=== PATIENT | male | born 1945 | race Caucasian/White ===

== ENCOUNTER 2018-04-18 13:24 | Inpatient (IN) ==
[2018-04-18 14:57] LABS: Basophils # 0.1 10*3/uL (0.0-0.2); Basophils % 0.7 % (0.0-0.8); Eosinophils # 0.3 10*3/uL (0.0-0.87); Eosinophils % 3.3 % (0.00-10.9); Hematocrit 46.1 VOL% (42.0-52.0); Hemoglobin 14.9 GM/DL (14.0-18.0); Immature Granulocytes % 0.5 %; Immature Granulocytes Absolute 0.04 #; Lymphocytes # 2.9 10*3/uL (1.4-4.0); Lymphocytes % 33.7 % (21.2-54.2); Mean Corpuscular HGB Conc 32.3 GM/DL (32-36); Mean Corpuscular Hemoglobin 29 PG (27-34); Mean Corpuscular Volume 89.3 FL (87-102); Mean Platelet Volume 11.8 FL (9.6-12.0); Monocytes # 0.6 10*3/uL (0.11-0.8); Monocytes % 6.8 % (1.7-12.7); Neutrophils # 4.8 10*3/uL (1.4-7.4); Platelet Count 131 T/CUMM (130-400); Red Blood Count 5.16 MC/CUMM (3.8-5.5); Red Cell Distribution Width 12.4 % (9.3-17.3); White Blood Count 8.7 T/CUMM (4-12)
[2018-04-18 15:04] LABS: Albumin 3.2 G/DL (3.4-5.0); Bilirubin,Total 0.6 MG/DL (0.2-1.0); Calcium 8.6 MG/DL (8.5-10.1); Potassium 4.3 MMOL/L (3.5-5.1); Total Protein 7.1 G/DL (6.4-8.3)
[2018-04-18 15:12] LABS: PT Patient Result 11.2 SECS; Partial Thromboplastin Time 24.4 SECS (0-40)
[2018-04-18] MEDS: CHLORHEXIDINE 0.12% ORAL RINSE 60 ML BOTTLE SWISH/SPIT SCH ×2 (16:44→21:20)
[2018-04-18] MEDS: CHLORHEXIDINE 4% SOLN 118 ML BOTTLE TOP SCH ×2 (16:44→19:27)
[2018-04-19] MEDS: CHLORHEXIDINE 4% SOLN 118 ML BOTTLE TOP SCH (04:19)
[2018-04-19] MEDS ORDERED: PAPAVERINE 60 MG/2 ML VIAL ONE (05:12)
[2018-04-19] MEDS ORDERED: VANCOMYCIN 1,000 MG VIAL ONE (05:12)
[2018-04-19] MEDS ORDERED: TISSUE ADHESIVE 1 EACH APPLICATOR TOP ONE (05:12)
[2018-04-19 05:14] LABS: Apearance,Urine CLEAR (Clear); Bilirubin,Urine Negative (Negative); Blood, Urine Small mg/dL (Negative); Glucose,Urine (UA) >=500 mg/dL (Negative); Ketones,Urine Negative (Negative); Mucus,Urine Few /LPF (Occasional); Nitrite,Urine Negative (Negative); Protein,Urine Negative; RBC,Urine 6 /HPF (0-4); Squamous Epithelial Cell,Urine Occasional /HPF (0-10); Urine Color Yellow (Yellow); Urine Specific Gravity 1.016 (1.001-1.035); WBC,Urine 3 /HPF (0-6)
[2018-04-19] MEDS ORDERED: MIDAZOLAM 10 MG/2 ML VIAL ONE ×2 (05:49→11:33)
[2018-04-19] MEDS ORDERED: PHENYLEPHRINE DRIP 20 MG/250 ML PREMIX IV ONE ×2 (05:49→10:44)
[2018-04-19] MEDS ORDERED: SUFentanil 250 MCG/5 ML AMP ONE (05:49)
[2018-04-19] MEDS ORDERED: FAMOTIDINE 20 MG TABLET PO ONE (06:00)
[2018-04-19] MEDS ORDERED: CEFUROXIME INJ 1,500 MG in SYRINGE 1 EACH IV ONE (06:00)
[2018-04-19] MEDS ORDERED: SODIUM CHLORIDE 0.9% 1,000 ML IV SCH (06:30)
[2018-04-19 07:44] LABS: ABG Base Excess -0.7 MMOL/L (-2.5-2.5); ABG HCO3 23.9 MMOL/L (20-26); ABG Oxygen Saturation 99.9 % (95-100); ABG PCO2 42.1 MM HG (35-48); ABG PH 7.375 (7.35-7.45); ABG TCO2 21.2 MMOL/L (23-27); Glucose Heart Surgery 179 MG/DL (74-106); Hematocrit Heart Surgery 43.6 PERCENT (42-52); Hemoglobin Heart Surgery 14.2 G/DL (14.0-18.0); Ionized Calcium Arterial 1.13 MMOL/L (1.21-1.46); PCO2 Patient Temp Arterial 42.1 MMHG; PH Patient Temp Arterial 7.375; Patient Temperature 37 CELCIUS; Potassium Heart/CVR 3.9 MMOL/L (3.5-5.1); Sodium Heart/CVR 137 MMOL/L (135-145)
[2018-04-19 08:40] LABS: Apearance,Urine CLEAR (Clear); Bilirubin,Urine Negative (Negative); Blood, Urine Small mg/dL (Negative); Calcium Oxalate Crystals,Urine Occasional /HPF (Few); Glucose,Urine (UA) Negative (Negative); Ketones,Urine Negative (Negative); Mucus,Urine Occasional /LPF (Occasional); Nitrite,Urine Negative (Negative); Protein,Urine Negative; RBC,Urine 3 /HPF (0-4); Squamous Epithelial Cell,Urine Occasional /HPF (0-10); Urine Color Yellow (Yellow); Urine Specific Gravity 1.009 (1.001-1.035); Urine Urobilinogen < 2.0 EU/DL (0.2-1.0); WBC,Urine 2 /HPF (0-6)
[2018-04-19 09:02] LABS: Hematocrit Heart Surgery 35.3 PERCENT (42-52); Hemoglobin Heart Surgery 11.4 G/DL (14.0-18.0); PCO2 Patient Temp Venous 36.4 MM HG; PH Patient Temp Venous 7.443; PO2 Patient Temp Venous 44.2 MM HG; Potassium Heart/CVR 5.1 MMOL/L (3.5-5.1); VBG Base Excess 1.1 MEQ/L (0-4); VBG HCO3 25.2 MEQ/L (24-28); VBG Oxygen Saturation 86.7 %; VBG PCO2 40.1 MMHG (41-51); VBG PH 7.414; VBG PO2 50.7 MMHG (17-40)
[2018-04-19 09:30] LABS: Hematocrit Heart Surgery 38.2 PERCENT (42-52); Hemoglobin Heart Surgery 12.4 G/DL (14.0-18.0); PCO2 Patient Temp Venous 32.2 MM HG; PH Patient Temp Venous 7.489; PO2 Patient Temp Venous 38.7 MM HG; Potassium Heart/CVR 5.8 MMOL/L (3.5-5.1); VBG Base Excess 1.7 MEQ/L (0-4); VBG HCO3 25.6 MEQ/L (24-28); VBG PCO2 37.2 MMHG (41-51); VBG PH 7.445; VBG PO2 47.7 MMHG (17-40)
[2018-04-19] MEDS ORDERED: CALCIUM CHLORIDE 1,000 MG/10 ML SYRINGE IV ONE (09:56)
[2018-04-19] MEDS ORDERED: SODIUM BICARBONATE 50 MEQ/50 ML SYRINGE IV ONE ×2 (09:56→10:48)
[2018-04-19] MEDS ORDERED: ALBUMIN 5% 12.5 GM/250 ML VIAL IV ONE (09:56)
[2018-04-19] MEDS ORDERED: EPINEPHrine 1 MG/10 ML SYRINGE ONE (09:56)
[2018-04-19] MEDS ORDERED: POTASSIUM CHLORIDE RIDER 100 ML IV ONE (09:57)
[2018-04-19] MEDS ORDERED: PHENYLEPHRINE DRIP 40 MG/250 ML PREMIX IV ONE (09:57)
[2018-04-19 10:03] LABS: Hemoglobin Heart Surgery 12.8 G/DL (14.0-18.0); VBG Base Excess 1.2 MEQ/L (0-4); VBG HCO3 23.7 MEQ/L (24-28); VBG PCO2 31.5 MMHG (41-51); VBG PH 7.495; VBG PO2 43.9 MMHG (17-40)
[2018-04-19 10:04] LABS: PCO2 Patient Temp Venous 28.9 MM HG; PH Patient Temp Venous 7.526; PO2 Patient Temp Venous 38.1 MM HG
[2018-04-19 10:05] LABS: Potassium Heart/CVR 6.7 MMOL/L (3.5-5.1)
[2018-04-19] MEDS ORDERED: THROMBIN TOPICAL (RECOMBINANT) 5,000 UNIT VIAL TOP ONE (10:05)
[2018-04-19] MEDS: CHLORHEXIDINE 0.12% ORAL RINSE 60 ML BOTTLE SWISH/SPIT SCH ×2 (10:25→21:01)
[2018-04-19 10:40] LABS: ABG Base Excess -1.3 MMOL/L (-2.5-2.5); ABG HCO3 23.4 MMOL/L (20-26); ABG Oxygen Saturation 98.5 % (95-100); ABG PCO2 37.2 MM HG (35-48); ABG PH 7.402 (7.35-7.45); ABG TCO2 20.4 MMOL/L (23-27); Glucose Heart Surgery 274 MG/DL (74-106); Hematocrit Heart Surgery 38.3 PERCENT (42-52); Hemoglobin Heart Surgery 12.4 G/DL (14.0-18.0); Ionized Calcium Arterial 1.21 MMOL/L (1.21-1.46); PCO2 Patient Temp Arterial 37.2 MMHG; PH Patient Temp Arterial 7.402; Patient Temperature 37 CELCIUS; Potassium Heart/CVR 5.2 MMOL/L (3.5-5.1); Sodium Heart/CVR 132 MMOL/L (135-145)
[2018-04-19] MEDS ORDERED: PROPOFOL 200 MG/20 ML VIAL IV ONE (10:44)
[2018-04-19] MEDS ORDERED: fentaNYL 100 MCG/2 ML VIAL ONE (10:44)
[2018-04-19] MEDS ORDERED: ONDANSETRON 4 MG/2 ML VIAL ONE (10:44)
[2018-04-19] MEDS ORDERED: ePHEDrine 50 MG/ML AMP ONE (10:44)
[2018-04-19] MEDS ORDERED: SEVOFLURANE 1 UNIT/15 MINUTE INH ONE ×2 (10:44→11:32)
[2018-04-19] MEDS ORDERED: SODIUM CHLORIDE 0.9% 2,000 ML IV ONE (10:45)
[2018-04-19] MEDS ORDERED: ETOMIDATE 40 MG/20 ML VIAL IV ONE ×2 (10:45→11:33)
[2018-04-19] MEDS ORDERED: GLYCOPYRROLATE 0.4 MG/2 ML VIAL ONE (10:45)
[2018-04-19] MEDS ORDERED: PHENYLEPHRINE 1 MG/10 ML SYRINGE IV ONE (10:45)
[2018-04-19] MEDS ORDERED: ROCURONIUM 100 MG/10 ML VIAL IV ONE (10:45)
[2018-04-19] MEDS ORDERED: NITROGLYCERIN DRIP 50 MG/250 ML BOTTLE IV ONE (10:45)
[2018-04-19] MEDS ORDERED: MANNITOL 100 GM/500 ML BAG IV ONE (10:47)
[2018-04-19] MEDS ORDERED: DEXTROSE 5% KCL 20 MEQ 20 MEQ/1,000 ML BAG IV ONE (10:48)
[2018-04-19] MEDS ORDERED: HEPARIN 10,000 UNIT/10 ML VIAL ONE ×2 (10:48→11:32)
[2018-04-19] MEDS ORDERED: PROTAMINE SULFATE 250 MG/25 ML VIAL IV ONE ×2 (10:48→11:32)
[2018-04-19] MEDS ORDERED: ALBUMIN 25% 25 GM/100 ML VIAL IV ONE (10:48)
[2018-04-19] MEDS ORDERED: FUROSEMIDE 20 MG/2 ML VIAL ONE (10:48)
[2018-04-19] MEDS ORDERED: methylPREDNISolone SOD SUC 1,000 MG/8 ML VIAL ONE (10:48)
[2018-04-19] MEDS ORDERED: MAGNESIUM SULFATE 10 GM/20 ML VIAL IV ONE (10:48)
[2018-04-19] MEDS ORDERED: PROTAMINE SULFATE 50 MG/5 ML VIAL IV ONE (10:49)
[2018-04-19] MEDS ORDERED: MAGNESIUM SULF RIDER 2 GM in PREMIX 1 EACH IV PRN (11:22)
[2018-04-19] MEDS ORDERED: DEXTROSE 50% 25 GM/50 ML SYRINGE IV PRN ×2 (11:22)
[2018-04-19] MEDS ORDERED: MORPHINE 10 MG/1 ML VIAL IV PRN (11:22)
[2018-04-19] MEDS ORDERED: CHLORHEXIDINE 4% SOLN 118 ML BOTTLE TOP PRN (11:22)
[2018-04-19] MEDS ORDERED: ACETAMINOPHEN 650 MG SUPP RECTAL PRN (11:22)
[2018-04-19] MEDS ORDERED: MAGNESIUM SULF RIDER 4 GM in PREMIX 1 EACH IV PRN (11:22)
[2018-04-19] MEDS ORDERED: ONDANSETRON 4 MG/2 ML VIAL IV PRN (11:22)
[2018-04-19] MEDS ORDERED: CALCIUM CHLORIDE 1,000 MG/10 ML SYRINGE IV PRN (11:22)
[2018-04-19] MEDS ORDERED: MIDAZOLAM 2 MG/2 ML VIAL IV PRN (11:22)
[2018-04-19] MEDS ORDERED: CALCIUM CHLORIDE 1,000 MG/10 ML VIAL IV ONE (11:32)
[2018-04-19] MEDS ORDERED: VECURONIUM 10 MG VIAL IV ONE (11:33)
[2018-04-19] MEDS ORDERED: AMINOCAPROIC ACID 5,000 MG/20 ML VIAL IV ONE (11:33)
[2018-04-19] MEDS ORDERED: HEPARIN/NACL 0.9% 2 UNITS/ML 500 ML IV ONE (11:33)
[2018-04-19] MEDS ORDERED: SODIUM CHLORIDE 0.9% 1,000 ML IV ONE (11:33)
[2018-04-19] MEDS ORDERED: LACTATED RINGERS 1,000 ML IV ONE (11:33)
[2018-04-19] MEDS: SODIUM CHLORIDE 0.45% 1,000 ML IV SCH ×2 (11:59)
[2018-04-19 12:04] LABS: ABG Base Excess -0.9 MMOL/L (-2.5-2.5); ABG HCO3 23.7 MMOL/L (20-26); ABG Oxygen Saturation 98.6 % (95-100); ABG PCO2 34.1 MM HG (35-48); ABG PH 7.431 (7.35-7.45); ABG TCO2 19.5 MMOL/L (23-27); Glucose Heart Surgery 278 MG/DL (74-106); Hematocrit Heart Surgery 43.1 PERCENT (42-52)
[2018-04-19 12:07] LABS: Basophils % 0.4 % (0.0-0.8); Eosinophils # 0.1 10*3/uL (0.0-0.87); Eosinophils % 0.7 % (0.00-10.9); Hematocrit 41.6 VOL% (42.0-52.0); Hemoglobin 13.6 GM/DL (14.0-18.0); Immature Granulocytes % 0.6 %; Immature Granulocytes Absolute 0.05 #; Lymphocytes # 1.5 10*3/uL (1.4-4.0); Lymphocytes % 16.4 % (21.2-54.2); Mean Corpuscular HGB Conc 32.7 GM/DL (32-36); Mean Corpuscular Hemoglobin 29 PG (27-34); Mean Corpuscular Volume 89.5 FL (87-102); Mean Platelet Volume 11.3 FL (9.6-12.0); Monocytes # 0.6 10*3/uL (0.11-0.8); Monocytes % 6.4 % (1.7-12.7); Neutrophils # 6.7 10*3/uL (1.4-7.4); Neutrophils % 75.5 % (38.7-73.9); Red Blood Count 4.65 MC/CUMM (3.8-5.5); Red Cell Distribution Width 12.6 % (9.3-17.3); White Blood Count 8.9 T/CUMM (4-12)
[2018-04-19 12:08] LABS: Platelet Count 85 T/CUMM (130-400)
[2018-04-19 12:15] LABS: INR 1.2; PT Patient Result 12.5 SECS
[2018-04-19 12:18] LABS: Blood Urea Nitrogen 18 MG/DL (7-18); Calcium 8.6 MG/DL (8.5-10.1); Glucose 269 MG/DL (74-106); Osmolality,Calculated 283.8 MOS/KG (273-304); Potassium 4.1 MMOL/L (3.5-5.1); Sodium 137 MMOL/L (136-145)
[2018-04-19] MEDS ORDERED: ASPIRIN 325 MG TABLET PO ONE (13:07)
[2018-04-19] MEDS: INSULIN REGULAR DRIP 100 ML IV SCH ×2 (13:28→23:11)
[2018-04-19] MEDS: INSULIN REGULAR 100 UNIT/ML IV PRN ×2 (13:52→17:04)
[2018-04-19 14:20] LABS: Platelet Estimate Decreased
[2018-04-19] MEDS: ALBUMIN 5% 12.5 GM in PREMIX 1 EACH IV PRN ×3 (14:27→16:43)
[2018-04-19] MEDS: SODIUM CHLORIDE 0.9% 250 ML IV PRN ×3 (14:42→17:52)
[2018-04-19] MEDS ORDERED: ENOXAPARIN 40 MG/0.4 ML SYRINGE SUBCUT SCH (17:00)
[2018-04-19] MEDS: CEFUROXIME INJ 1,500 MG in SYRINGE 1 EACH IV SCH (18:49)
[2018-04-19 18:54] LABS: ABG Base Excess -3.8 MMOL/L (-2.5-2.5); ABG HCO3 21.2 MMOL/L (20-26); ABG Oxygen Saturation 98.3 % (95-100); ABG PCO2 34.2 MM HG (35-48); ABG PH 7.385 (7.35-7.45); ABG TCO2 18.1 MMOL/L (23-27); Glucose Heart Surgery 218 MG/DL (74-106); Hematocrit Heart Surgery 38.1 PERCENT (42-52); Hemoglobin Heart Surgery 12.4 G/DL (14.0-18.0); Potassium Heart/CVR 3.6 MMOL/L (3.5-5.1)
[2018-04-19] MEDS: POTASSIUM CHLORIDE RIDER 20 MEQ in PREMIX 1 EACH IV PRN (19:37)
[2018-04-19] MEDS: POTASSIUM CHLORIDE RIDER 10 MEQ in PREMIX 1 EACH IV PRN (20:08)
[2018-04-19] MEDS: MORPHINE 4 MG/1 ML VIAL IV PRN (23:48)
[2018-04-20] MEDS: SODIUM CHLORIDE 0.45% 1,000 ML IV SCH ×2 (00:08→10:14)
[2018-04-20] MEDS: POTASSIUM CHLORIDE RIDER 20 MEQ in PREMIX 1 EACH IV PRN (00:10)
[2018-04-20] MEDS: MORPHINE 4 MG/1 ML VIAL IV PRN ×2 (00:31→18:46)
[2018-04-20] MEDS: POTASSIUM CHLORIDE RIDER 10 MEQ in PREMIX 1 EACH IV PRN (00:48)
[2018-04-20 04:11] LABS: Basophils % 0.2 % (0.0-0.8); Hematocrit 35.6 VOL% (42.0-52.0); Hemoglobin 11.8 GM/DL (14.0-18.0); Immature Granulocytes % 0.6 %; Lymphocytes # 1.8 10*3/uL (1.4-4.0); Lymphocytes % 10.5 % (21.2-54.2); Mean Corpuscular HGB Conc 33.1 GM/DL (32-36); Mean Corpuscular Hemoglobin 29 PG (27-34); Mean Corpuscular Volume 88.6 FL (87-102); Mean Platelet Volume 11.6 FL (9.6-12.0); Monocytes # 1.1 10*3/uL (0.11-0.8); Monocytes % 6.5 % (1.7-12.7); Neutrophils # 13.8 10*3/uL (1.4-7.4); Neutrophils % 82.2 % (38.7-73.9); Red Blood Count 4.02 MC/CUMM (3.8-5.5); Red Cell Distribution Width 12.4 % (9.3-17.3); White Blood Count 16.7 T/CUMM (4-12)
[2018-04-20 04:12] LABS: Platelet Count 74 T/CUMM (130-400)
[2018-04-20 04:26] LABS: Calcium 8.1 MG/DL (8.5-10.1); Osmolality,Calculated 281.4 MOS/KG (273-304); Potassium 4.1 MMOL/L (3.5-5.1)
[2018-04-20 04:39] LABS: ABG Base Excess -0.4 MMOL/L (-2.5-2.5); ABG HCO3 24.1 MMOL/L (20-26); ABG Oxygen Saturation 97.9 % (95-100); ABG PH 7.416 (7.35-7.45); ABG PO2 99.3 MM HG (80-95); ABG TCO2 20.9 MMOL/L (23-27)
[2018-04-20 04:50] LABS: Hypochromasia 1+; Ovalocytes Slight; Platelet Estimate Decreased
[2018-04-20] MEDS: CEFUROXIME INJ 1,500 MG in SYRINGE 1 EACH IV SCH (06:28)
[2018-04-20] MEDS: FUROSEMIDE 40 MG TABLET PO SCH (09:56)
[2018-04-20] MEDS: ASPIRIN EC 325 MG TABLET PO SCH (09:57)
[2018-04-20] MEDS: PANTOPRAZOLE 40 MG VIAL IV SCH (09:57)
[2018-04-20] MEDS: INSULIN REGULAR 100 UNIT/ML SUBCUT SCH ×4 (10:04→22:45)
[2018-04-20] MEDS: CHLORHEXIDINE 0.12% ORAL RINSE 60 ML BOTTLE SWISH/SPIT SCH ×2 (10:04→22:45)
[2018-04-20] MEDS: CLOPIDOGREL 75 MG TABLET PO SCH (10:05)
[2018-04-20] MEDS ORDERED: CEFUROXIME INJ 1,500 MG in SYRINGE 1 EACH IV SCH (22:00)
[2018-04-20] MEDS: ATORVASTATIN 40 MG TABLET PO SCH (22:44)
[2018-04-21] MEDS: INSULIN REGULAR 100 UNIT/ML SUBCUT SCH ×6 (00:50→21:05)
[2018-04-21] MEDS: CEFUROXIME INJ 1,500 MG in SYRINGE 1 EACH IV SCH (03:28)
[2018-04-21 04:16] LABS: Basophils % 0.1 % (0.0-0.8); Hematocrit 37.2 VOL% (42.0-52.0); Hemoglobin 11.9 GM/DL (14.0-18.0); Immature Granulocytes Absolute 0.17 #; Lymphocytes # 1.6 10*3/uL (1.4-4.0); Lymphocytes % 9.3 % (21.2-54.2); Mean Corpuscular Hemoglobin 29 PG (27-34); Mean Corpuscular Volume 89.4 FL (87-102); Mean Platelet Volume 12.4 FL (9.6-12.0); Monocytes # 1.4 10*3/uL (0.11-0.8); Monocytes % 8.1 % (1.7-12.7); Neutrophils # 14.3 10*3/uL (1.4-7.4); Neutrophils % 81.5 % (38.7-73.9); Red Blood Count 4.16 MC/CUMM (3.8-5.5); Red Cell Distribution Width 12.8 % (9.3-17.3); White Blood Count 17.5 T/CUMM (4-12)
[2018-04-21 04:32] LABS: Platelet Count 70 T/CUMM (130-400)
[2018-04-21 04:41] LABS: Calcium 8.2 MG/DL (8.5-10.1); Osmolality,Calculated 289.7 MOS/KG (273-304); Potassium 4.5 MMOL/L (3.5-5.1)
[2018-04-21] MEDS: CHLORHEXIDINE 0.12% ORAL RINSE 60 ML BOTTLE SWISH/SPIT SCH ×2 (09:44→21:06)
[2018-04-21] MEDS: PANTOPRAZOLE 40 MG VIAL IV SCH (09:44)
[2018-04-21] MEDS: METOPROLOL TARTRATE 25 MG TABLET PO SCH ×2 (09:45→21:04)
[2018-04-21] MEDS: ASPIRIN EC 325 MG TABLET PO SCH (09:45)
[2018-04-21] MEDS: CLOPIDOGREL 75 MG TABLET PO SCH (09:45)
[2018-04-21] MEDS: FUROSEMIDE 40 MG TABLET PO SCH (09:45)
[2018-04-21] MEDS: METOPROLOL TARTRATE 50 MG TABLET PO SCH (09:46)
[2018-04-21] MEDS: ATORVASTATIN 40 MG TABLET PO SCH (21:04)
[2018-04-22] MEDS: INSULIN REGULAR 100 UNIT/ML SUBCUT SCH ×7 (00:30→22:00)
[2018-04-22 05:10] LABS: Basophils % 0.1 % (0.0-0.8); Eosinophils # 0.1 10*3/uL (0.0-0.87); Eosinophils % 0.6 % (0.00-10.9); Hematocrit 37.1 VOL% (42.0-52.0); Hemoglobin 11.8 GM/DL (14.0-18.0); Immature Granulocytes % 0.7 %; Lymphocytes # 3.5 10*3/uL (1.4-4.0); Lymphocytes % 24.7 % (21.2-54.2); Mean Corpuscular HGB Conc 31.8 GM/DL (32-36); Mean Corpuscular Hemoglobin 29 PG (27-34); Mean Corpuscular Volume 90.3 FL (87-102); Monocytes # 1.4 10*3/uL (0.11-0.8); Neutrophils % 63.9 % (38.7-73.9); Platelet Count 65 T/CUMM (130-400); Red Blood Count 4.11 MC/CUMM (3.8-5.5); Red Cell Distribution Width 12.9 % (9.3-17.3)
[2018-04-22 05:45] LABS: Calcium 8.3 MG/DL (8.5-10.1); Osmolality,Calculated 284.5 MOS/KG (273-304)
[2018-04-22 06:02] LABS: Atypical Lymphocytes Few; Eosinophils 1 % (0-10); Hypochromasia 1+; Lymphocytes 34 % (20-55); Segmented Neutrophils 56 % (50-85); Total Cells Counted 100
[2018-04-22 06:03] LABS: Microcytosis 1+; Platelet Estimate Decreased
[2018-04-22] MEDS: FUROSEMIDE 40 MG TABLET PO SCH (08:54)
[2018-04-22] MEDS: CLOPIDOGREL 75 MG TABLET PO SCH (08:55)
[2018-04-22] MEDS: METOPROLOL TARTRATE 25 MG TABLET PO SCH ×2 (08:55→21:36)
[2018-04-22] MEDS: ASPIRIN EC 325 MG TABLET PO SCH (08:55)
[2018-04-22] MEDS: CHLORHEXIDINE 0.12% ORAL RINSE 60 ML BOTTLE SWISH/SPIT SCH ×2 (08:56→21:37)
[2018-04-22] MEDS: METOPROLOL TARTRATE 50 MG TABLET PO SCH (08:57)
[2018-04-22] MEDS: PANTOPRAZOLE 40 MG VIAL IV SCH (10:01)
[2018-04-22] MEDS ORDERED: FUROSEMIDE 40 MG/4 ML VIAL IV ONE (10:23)
[2018-04-22] MEDS: BISACODYL 5 MG TABLET PO SCH (17:25)
[2018-04-22] MEDS: DOCUSATE SODIUM 100 MG CAPSULE PO SCH (17:25)
[2018-04-22] MEDS: ATORVASTATIN 40 MG TABLET PO SCH (21:36)
[2018-04-23] MEDS: INSULIN REGULAR 100 UNIT/ML SUBCUT SCH ×5 (05:39→23:50)
[2018-04-23] MEDS: CHLORHEXIDINE 0.12% ORAL RINSE 60 ML BOTTLE SWISH/SPIT SCH ×2 (09:25→21:50)
[2018-04-23] MEDS: BISACODYL 5 MG TABLET PO SCH (09:26)
[2018-04-23] MEDS: FUROSEMIDE 40 MG TABLET PO SCH (09:26)
[2018-04-23] MEDS: DOCUSATE SODIUM 100 MG CAPSULE PO SCH (09:26)
[2018-04-23] MEDS: METOPROLOL TARTRATE 25 MG TABLET PO SCH ×2 (09:26→21:56)
[2018-04-23] MEDS: ASPIRIN EC 325 MG TABLET PO SCH (09:26)
[2018-04-23] MEDS: CLOPIDOGREL 75 MG TABLET PO SCH (09:26)
[2018-04-23] MEDS: PANTOPRAZOLE 40 MG TABLET PO SCH (09:26)
[2018-04-23 14:00] LABS: Calcium 8.4 MG/DL (8.5-10.1); Potassium 3.6 MMOL/L (3.5-5.1)
[2018-04-23] MEDS: ATORVASTATIN 40 MG TABLET PO SCH (21:56)
[2018-04-24 05:29] LABS: Basophils # 0.1 10*3/uL (0.0-0.2); Basophils % 0.4 % (0.0-0.8); Eosinophils # 0.6 10*3/uL (0.0-0.87); Eosinophils % 4.3 % (0.00-10.9); Hematocrit 42.3 VOL% (42.0-52.0); Hemoglobin 13.5 GM/DL (14.0-18.0); Immature Granulocytes % 1.8 %; Immature Granulocytes Absolute 0.25 #; Lymphocytes # 3.7 10*3/uL (1.4-4.0); Lymphocytes % 27.3 % (21.2-54.2); Mean Corpuscular HGB Conc 31.9 GM/DL (32-36); Mean Corpuscular Hemoglobin 29 PG (27-34); Mean Corpuscular Volume 89.8 FL (87-102); Mean Platelet Volume 12.2 FL (9.6-12.0); Monocytes # 1.2 10*3/uL (0.11-0.8); Monocytes % 8.6 % (1.7-12.7); Neutrophils # 7.9 10*3/uL (1.4-7.4); Neutrophils % 57.6 % (38.7-73.9); Platelet Count 121 T/CUMM (130-400); Red Blood Count 4.71 MC/CUMM (3.8-5.5); Red Cell Distribution Width 12.8 % (9.3-17.3); White Blood Count 13.7 T/CUMM (4-12)
[2018-04-24 05:45] LABS: Calcium 8.7 MG/DL (8.5-10.1); Osmolality,Calculated 286.5 MOS/KG (273-304); Potassium 4.3 MMOL/L (3.5-5.1)
[2018-04-24] MEDS: INSULIN REGULAR 100 UNIT/ML SUBCUT SCH ×6 (05:54→22:23)
[2018-04-24] MEDS ORDERED: POTASSIUM CHLORIDE 20 MEQ TABLET PO ONE (08:29)
[2018-04-24] MEDS ORDERED: ERGOCALCIFEROL 50,000 UNIT CAPSULE PO SCH (09:00)
[2018-04-24] MEDS: DOCUSATE SODIUM 100 MG CAPSULE PO SCH (09:30)
[2018-04-24] MEDS: BISACODYL 5 MG TABLET PO SCH (09:30)
[2018-04-24] MEDS: PANTOPRAZOLE 40 MG TABLET PO SCH (09:32)
[2018-04-24] MEDS: FUROSEMIDE 40 MG TABLET PO SCH (09:32)
[2018-04-24] MEDS: ASPIRIN EC 325 MG TABLET PO SCH (09:32)
[2018-04-24] MEDS: CLOPIDOGREL 75 MG TABLET PO SCH (09:32)
[2018-04-24] MEDS: METOPROLOL TARTRATE 25 MG TABLET PO SCH (09:33)
[2018-04-24] MEDS: CHLORHEXIDINE 0.12% ORAL RINSE 60 ML BOTTLE SWISH/SPIT SCH ×2 (09:33→22:24)
[2018-04-24] MEDS: CARVEDILOL 6.25 MG TABLET PO SCH (22:23)
[2018-04-24] MEDS: ATORVASTATIN 40 MG TABLET PO SCH (22:23)
[2018-04-25] MEDS: INSULIN REGULAR 100 UNIT/ML SUBCUT SCH ×6 (01:43→22:37)
[2018-04-25 04:59] LABS: Basophils # 0.1 10*3/uL (0.0-0.2); Basophils % 0.5 % (0.0-0.8); Eosinophils # 0.6 10*3/uL (0.0-0.87); Eosinophils % 4.7 % (0.00-10.9); Hematocrit 40.7 VOL% (42.0-52.0); Immature Granulocytes % 2.3 %; Lymphocytes # 3.8 10*3/uL (1.4-4.0); Lymphocytes % 29.3 % (21.2-54.2); Mean Corpuscular HGB Conc 31.9 GM/DL (32-36); Mean Corpuscular Hemoglobin 29 PG (27-34); Mean Corpuscular Volume 90.4 FL (87-102); Monocytes # 1.2 10*3/uL (0.11-0.8); Monocytes % 9.3 % (1.7-12.7); Neutrophils # 6.9 10*3/uL (1.4-7.4); Neutrophils % 53.9 % (38.7-73.9); Platelet Count 120 T/CUMM (130-400); Red Cell Distribution Width 12.9 % (9.3-17.3); White Blood Count 12.9 T/CUMM (4-12)
[2018-04-25 05:23] LABS: Calcium 8.7 MG/DL (8.5-10.1); Osmolality,Calculated 283.7 MOS/KG (273-304); Potassium 3.9 MMOL/L (3.5-5.1)
[2018-04-25] MEDS: DOCUSATE SODIUM 100 MG CAPSULE PO SCH (08:26)
[2018-04-25] MEDS: PANTOPRAZOLE 40 MG TABLET PO SCH (08:26)
[2018-04-25] MEDS: FUROSEMIDE 40 MG TABLET PO SCH (08:26)
[2018-04-25] MEDS: CARVEDILOL 6.25 MG TABLET PO SCH ×2 (08:26→22:38)
[2018-04-25] MEDS: ASPIRIN EC 325 MG TABLET PO SCH (08:26)
[2018-04-25] MEDS: CLOPIDOGREL 75 MG TABLET PO SCH (08:26)
[2018-04-25] MEDS: BISACODYL 5 MG TABLET PO SCH (08:27)
[2018-04-25] MEDS: CHLORHEXIDINE 0.12% ORAL RINSE 60 ML BOTTLE SWISH/SPIT SCH ×2 (08:32→22:38)
[2018-04-25] MEDS: ATORVASTATIN 40 MG TABLET PO SCH (22:38)
[2018-04-26] MEDS: INSULIN REGULAR 100 UNIT/ML SUBCUT SCH ×5 (01:34→23:34)
[2018-04-26 04:39] LABS: Basophils % 0.3 % (0.0-0.8); Eosinophils # 0.5 10*3/uL (0.0-0.87); Eosinophils % 4.1 % (0.00-10.9); Hematocrit 38.7 VOL% (42.0-52.0); Hemoglobin 12.7 GM/DL (14.0-18.0); Immature Granulocytes % 2.4 %; Immature Granulocytes Absolute 0.29 #; Lymphocytes # 3.2 10*3/uL (1.4-4.0); Lymphocytes % 26.7 % (21.2-54.2); Mean Corpuscular HGB Conc 32.8 GM/DL (32-36); Mean Corpuscular Hemoglobin 29 PG (27-34); Mean Corpuscular Volume 88.6 FL (87-102); Mean Platelet Volume 12.6 FL (9.6-12.0); Monocytes # 0.9 10*3/uL (0.11-0.8); Monocytes % 7.5 % (1.7-12.7); Neutrophils # 7.1 10*3/uL (1.4-7.4); Platelet Count 103 T/CUMM (130-400); Red Blood Count 4.37 MC/CUMM (3.8-5.5); Red Cell Distribution Width 12.7 % (9.3-17.3); White Blood Count 12.1 T/CUMM (4-12)
[2018-04-26 05:17] LABS: Calcium 8.2 MG/DL (8.5-10.1); Osmolality,Calculated 281.8 MOS/KG (273-304); Potassium 3.4 MMOL/L (3.5-5.1)
[2018-04-26] MEDS: POTASSIUM CHLORIDE RIDER 10 MEQ in PREMIX 1 EACH IV PRN ×2 (07:52→17:59)
[2018-04-26] MEDS: BISACODYL 5 MG TABLET PO SCH (08:54)
[2018-04-26] MEDS: CLOPIDOGREL 75 MG TABLET PO SCH (08:54)
[2018-04-26] MEDS: DOCUSATE SODIUM 100 MG CAPSULE PO SCH (08:55)
[2018-04-26] MEDS: CARVEDILOL 6.25 MG TABLET PO SCH ×2 (08:55→23:24)
[2018-04-26] MEDS: FUROSEMIDE 40 MG TABLET PO SCH (08:55)
[2018-04-26] MEDS: ASPIRIN EC 325 MG TABLET PO SCH (08:55)
[2018-04-26] MEDS: PANTOPRAZOLE 40 MG TABLET PO SCH (08:55)
[2018-04-26] MEDS: CHLORHEXIDINE 0.12% ORAL RINSE 60 ML BOTTLE SWISH/SPIT SCH ×2 (08:56→23:25)
[2018-04-26] MEDS: ATORVASTATIN 40 MG TABLET PO SCH (23:24)
[2018-04-27 06:03] LABS: Basophils # 0.1 10*3/uL (0.0-0.2); Basophils % 0.5 % (0.0-0.8); Eosinophils # 0.5 10*3/uL (0.0-0.87); Eosinophils % 4.1 % (0.00-10.9); Hematocrit 37.1 VOL% (42.0-52.0); Hemoglobin 11.9 GM/DL (14.0-18.0); Immature Granulocytes % 2.3 %; Immature Granulocytes Absolute 0.25 #; Lymphocytes # 2.4 10*3/uL (1.4-4.0); Mean Corpuscular HGB Conc 32.1 GM/DL (32-36); Mean Corpuscular Hemoglobin 28 PG (27-34); Mean Corpuscular Volume 88.5 FL (87-102); Monocytes # 0.9 10*3/uL (0.11-0.8); Neutrophils # 6.9 10*3/uL (1.4-7.4); Neutrophils % 63.1 % (38.7-73.9); Platelet Count 134 T/CUMM (130-400); Red Blood Count 4.19 MC/CUMM (3.8-5.5)
[2018-04-27 06:21] LABS: Calcium 8.1 MG/DL (8.5-10.1); Osmolality,Calculated 279.8 MOS/KG (273-304); Potassium 3.4 MMOL/L (3.5-5.1)
[2018-04-27] MEDS: DOCUSATE SODIUM 100 MG CAPSULE PO SCH (09:32)
[2018-04-27] MEDS: BISACODYL 5 MG TABLET PO SCH (09:32)
[2018-04-27] MEDS: CLOPIDOGREL 75 MG TABLET PO SCH (09:32)
[2018-04-27] MEDS: ASPIRIN EC 325 MG TABLET PO SCH (09:32)
[2018-04-27] MEDS: CARVEDILOL 6.25 MG TABLET PO SCH (09:32)
[2018-04-27] MEDS: FUROSEMIDE 40 MG TABLET PO SCH (09:32)
[2018-04-27] MEDS: CHLORHEXIDINE 0.12% ORAL RINSE 60 ML BOTTLE SWISH/SPIT SCH (09:33)
[2018-04-27] MEDS: INSULIN REGULAR 100 UNIT/ML SUBCUT SCH ×2 (09:33→12:33)
[2018-04-27] MEDS: PANTOPRAZOLE 40 MG TABLET PO SCH (09:33)
[2018-04-27] MEDS: POTASSIUM CHLORIDE RIDER 10 MEQ in PREMIX 1 EACH IV PRN (09:45)
[2018-04-27] MEDS ORDERED: ALBUTEROL/IPRATROPIUM 3 ML NEB RESP TX ONE (10:01)
[2018-04-27] MEDS ORDERED: POTASSIUM CHLORIDE RIDER 100 ML IV ONE (11:15)
[2018-04-27] MEDS: POTASSIUM CHLORIDE RIDER 20 MEQ in PREMIX 1 EACH IV PRN (11:33)
[2018-04-27 12:28] VITALS: BP 112/65
== END 2018-04-27 14:52 | disposition home health service (06) | DRG 221 ==
LOC: N.4E 13:24 → N.CVR 04-19 09:39 → N.TELES 04-20 10:32
PROVIDERS: ADMIT Thoracic Surgery (Cardiothoracic Vascular Surgery); ATTEND Thoracic Surgery (Cardiothoracic Vascular Surgery)
PROC: CABGAVR (ICD-10-PCS; 2018-04-19 06:50)